=== PATIENT | male | born 1960 | race Caucasian/White ===

== ENCOUNTER → 2019-08-06 15:17 | Outpatient (CLI) | payer MEDICARE, SELFPAY ==
[2019-08-13 09:25] LABS: Testosterone, Total, LC/MS 988.5 ng/dL (264.0-916.0); Testosterone,Free 22.5 pg/mL (7.2-24.0)
== END ==
PROVIDERS: Visit Provider Urology
DX: E29.1 Testicular hypofunction (principal)
CPT/HCPCS: 36415; 84402; 84403

== ENCOUNTER → 2020-02-21 11:57 | Outpatient (CLI) | payer MEDICARE, SELFPAY ==
[2020-02-21 12:15] LABS: Basophils % 0.8 % (0.1-2.0); Eosinophils # 0.1 K/mm3 (0.0-0.4); Eosinophils % 1.3 % (0.1-12.0); Hematocrit 43.6 % (42.0-52.0); Hemoglobin 14.3 g/dL (14.1-18.0); Lymphocytes # 1.8 K/mm3 (0.7-4.5); Lymphocytes % 34.4 % (10-50); Mean Corpuscular HGB Conc 32.7 g/dL (31.8-35.4); Mean Corpuscular Hemoglobin 29.4 pg (27.0-31.2); Mean Corpuscular Volume 90.1 fl (80-94); Mean Platelet Volume 7.4 fl (7.4-10.4); Monocytes # 0.3 K/mm3 (0.1-1.0); Monocytes % 5.7 % (1.7-9.3); Neutrophils % 57.8 % (37.0-80.0); Platelet Count 294 K/mm3 (142-424); Red Blood Count 4.84 M/mm3 (4.60-6.20); Red Cell Distribution Width 13.2 % (11.5-17.5); White Blood Count 5.2 K/mm3 (4.8-10.8)
[2020-02-21 12:45] LABS: Alanine Aminotransferase 52 U/L (12-78); Albumin Level 4.7 g/dl (3.5-5.0); Alkaline Phosphatase 49 U/L (38-126); Aspartate Amino Transferase 43 U/L (17-59); Bilirubin,Indirect 0.2 mg/dL (0.0-0.9); Bilirubin,Total 0.2 mg/dl (0.2-1.3); Bilirubin,Unconjugated 0.3 mg/dL (0.0-1.1); Total Protein,Serum 7.4 g/dl (6.3-8.2)
[2020-02-21 13:17] LABS: Prostate Specific Ag Screen 0.4 ng/ml (0.0-4.0)
[2020-02-23 21:12] LABS: Testosterone, Total, LC/MS 170.9 ng/dL (264.0-916.0); Testosterone,Free 4.9 pg/mL (7.2-24.0)
== END ==
PROVIDERS: Visit Provider Urology
DX: E29.1 Testicular hypofunction (principal); Z12.5 Encounter for screening for malignant neoplasm of prostate
CPT/HCPCS: 36415; 80076; 84402; 84403; 85025; G0103

== ENCOUNTER → 2020-03-13 08:07 | Outpatient (CLI) | payer MEDICARE, SELFPAY ==
--- NOTE | 2020-03-13 08:15 | XR_ITS ---
PROCEDURE: XR KNEE LT 4V CLINICAL INDICATION: left knee pain, repeated falls over the past 30 years COMPARISON: No exams were available for comparison FINDINGS: No fracture or dislocation. No lytic or blastic change. There is normal mineralization. There is mild joint space narrowing medially and there is mild spurring of the medial tibial spine. There is mild narrowing of the patellofemoral space. There is a small focal ossification just superior to the superior border of the patella probably dystrophic calcification or ossification within the quadriceps tendon likely from previous trauma. There is no definite effusion. Other findings:None. IMPRESSION: Mild degenerative and or posttraumatic changes as indicated above Dictated by: Dr. Kumar Issa MD 03/13/2020 08:[address] Kumar Issa MD in [place] 03/13/2020 08:56
== END ==
PROVIDERS: Visit Provider Orthopaedic Surgery
DX: M25.562 Pain in left knee (principal)
CPT/HCPCS: 73564

== ENCOUNTER → 2020-04-03 11:35 | Outpatient (CLI) | payer MEDICARE, SELFPAY ==
[2020-04-03 11:55] LABS: Blood Urea Nitrogen 13 mg/dl (9-20); Estimated Glomerular Filt Rate 76 ml/min (>60); GFR (African American) 93 ML/MIN (>60)
--- NOTE | 2020-04-03 12:09 | MR_ITS ---
PROCEDURE: MR KNEE LT WO/W CON CLINICAL INDICATION: left knee pain; evaluate for meniscal tear Pain behind the knee, grinding, worse when walking and bending and extending the COMPARISON: XR KNEE LT 4V from 03/13/2020 TECHNIQUE: Routine multiplanar multi echo sequences are performed without gadolinium enhancement. FINDINGS: The fibers of the anterior cruciate ligament do appear to be incomplete consistent with tear of the ACL. This may be chronic as there is no edema in this region. There is some hyper buckling of the PCL. The PCL however is intact. There is a complex tear involving the posterior horn of the medial meniscus with minimal separation of the meniscal fragments. There is also a complex tear involving the medial aspect of the anterior horn of the lateral meniscus. The patellar tendon and quadriceps tendon appear intact. The collateral ligaments appear intact. There are moderate to severe osteoarthritic changes greatest at the medial compartment and patellofemoral joint. There is a moderate amount of bone marrow edema involving the medial aspect of the distal femur and the proximal and medial aspect of the tibia. There is a small subchondral cyst involving the proximal tibia at the interspinous region medially measuring approximately 10 x 5 mm. There is a small knee joint effusion. Artifact present probably from small metallic fragments in the infrapatellar region. IMPRESSION: 1. Tear of the ACL which may be chronic. 2. Complex tear of the posterior horn of the medial meniscus and the anterior horn of the lateral meniscus 3. Moderate to severe osteoarthritic changes with knee joint effusion and bone marrow edema of the medial aspect of the distal femur and the proximal and medial aspect of the tibia with knee joint effusion Dictated by: Jose G Parr MD 04/05/2020 07:53 Electronically signed by Jose G Parr MD in [place] 04/05/2020 07:53
== END ==
PROVIDERS: PCP Family Medicine; Visit Provider Orthopaedic Surgery
DX: G89.29 Other chronic pain (principal); M25.562 Pain in left knee
CPT/HCPCS: 36415; 73723; 82565; 84520; A9576

== ENCOUNTER → 2021-09-07 11:07 | Outpatient (CLI) | payer MEDICARE, SELFPAY ==
[2021-09-07 11:09] LABS: MANUAL DIFFERENTIAL MANUAL DIFFERENTIAL (MANUAL DIFF)
[2021-09-07 11:22] LABS: Basophils # 0.1 K/mm3 (0-0.2); Basophils % 1.3 % (0.1-2.0); Eosinophils # 0.2 K/mm3 (0.0-0.4); Eosinophils % 2.7 % (0.1-12.0); Hematocrit 52.1 % (42.0-52.0); Hemoglobin 17.3 g/dL (14.1-18.0); Lymphocytes # 1.7 K/mm3 (0.7-4.5); Lymphocytes % 26.4 % (10-50); Mean Corpuscular HGB Conc 33.1 g/dL (31.8-35.4); Mean Corpuscular Hemoglobin 31.2 pg (27.0-31.2); Mean Corpuscular Volume 94.1 fl (80-94); Monocytes # 0.5 K/mm3 (0.1-1.0); Monocytes % 7.4 % (1.7-9.3); Neutrophils # 4.1 K/mm3 (1.8-7.8); Neutrophils % 62.3 % (37.0-80.0); Platelet Count 341 K/mm3 (142-424); Red Blood Count 5.54 M/mm3 (4.60-6.20); Red Cell Distribution Width 13.5 % (11.5-17.5); White Blood Count 6.5 K/mm3 (4.8-10.8)
[2021-09-07 13:11] LABS: Alanine Aminotransferase 51 U/L (12-78); Aspartate Amino Transferase 79 U/L (17-59); Bilirubin,Unconjugated 0.3 mg/dL (0.0-1.1)
[2021-09-07 13:12] LABS: Albumin Level 4.4 g/dl (3.5-5.0); Alkaline Phosphatase 51 U/L (38-126); Bilirubin,Direct 0.1 mg/dl (0.0-0.4); Bilirubin,Indirect 0.3 mg/dL (0.0-0.9); Bilirubin,Total 0.4 mg/dl (0.2-1.3)
[2021-09-07 16:48] LABS: Eosinophils % 4 % (0-3); Lymphocytes % 22 % (10-50); Monocytes % 8 % (2-9); Neutrophils % 66 % (42-76); Platelet Estimate Normal; Total Cells Counted 100
[2021-09-09 18:09] LABS: Testosterone, Total, LC/MS 1425.5 ng/dL (264.0-916.0); Testosterone,Free 34.3 pg/mL (6.6-18.1)
== END ==
PROVIDERS: Visit Provider Urology
DX: E29.1 Testicular hypofunction (principal)
CPT/HCPCS: 36415; 80076; 84402; 84403; 85007; 85014; 85018; 85048; 85049

== ENCOUNTER 2024-04-04 12:18 | Outpatient (CLI) | payer MEDICARE, SELFPAY ==
--- NOTE | 2024-04-04 12:27 | XR_ITS ---
FINAL REPORT CLINICAL HISTORY: left knee pain COMPARISON: None FINDINGS: LEFT KNEE 3 views of the left knee were obtained. There is no acute fracture or dislocation. Visualized joint spaces are normally aligned. Soft tissues are unremarkable. Moderate degenerative changes present. A small joint effusion is seen. IMPRESSION: Moderate degenerative change, small joint effusion. Reviewed, Interpreted and Dictated by Erika Amaya MD Transcribed by Samira Souza Authenticated and [facility]
== END 2024-04-04 23:59 | disposition home or self-care (01) ==
LOC: RAD 12:24
PROVIDERS: PCP Family Medicine; Visit Provider Orthopaedic Surgery
DX: M25.562 Pain in left knee (principal)
CPT/HCPCS: 73562